=== PATIENT | female | born 1975 | race Caucasian/White ===

== ENCOUNTER 2018-06-27 12:14 | Emergency (ER) | payer BC ==
--- NOTE | 2018-06-27 12:51 | RAD REPORT ---
EXAM DESCRIPTION: CT - Ct Stroke Brain Wo Cont - 06/27/2018 12:45 pm CLINICAL HISTORY: facial drooping CVA COMPARISON: No comparisons TECHNIQUE: All CT scans are performed using dose optimization technique as appropriate and may inclu de automated exposure control or mA/KV adjustment according to patient size. FINDINGS: No intracranial hemorrhage, hydrocephalus or extra-axial fluid collection.No areas of brai n edema or evidence of midline shift. The paranasal sinuses and mastoids are clear. The calvarium is intact. IMPRESSION: No acute intracranial abnormality. The findings were discussed with ER physician Dr. Weinstein on 06/27/2018 at 12:40 p.m. by telephone.
--- NOTE | 2018-06-27 12:56 | RAD REPORT ---
EXAM DESCRIPTION: RAD - Chest Single View - 06/27/2018 12:48 pm CLINICAL HISTORY: CVA Chest pain. COMPARISON: No comparisons FINDINGS: Portable technique limits examination quality. The lungs are grossly clear. The heart is normal in size. No displaced fractures. IMPRESSION: No acute intrathoracic process suspected.
--- NOTE | 2018-06-27 13:14 | EDPHYS ---
Physician Documentation [facility] Name: Marleni Corbett Age: 43 yrs Sex: Female : 1975 Arrival Date: 06/27/2018 Time: 12:15 Bed 14 Private MD: ED Physician Dayron Sandhu HPI: 06/27 13:06 This 43 yrs old Female presents to ER via Ambulatory with complaints of ps1 Facial Droop. 13:06 The patient presents to the emergency department with weakness of the left side of the ps1 face, that is mild. Onset: The symptoms/episode began/occurred woke up this morning like this. hx of Ma's palsy as a teenager. Had some left ear pain. Now has left facial droop and ptosis. No other FND. C/w ma's palsy. . 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 - Social history:: Smoking status: Patient/guardian denies using tobacco, Patient/guardian denies using alcohol. - Ebola Screening: : Patient negative for fever greater than or equal to 101.5 degrees Fahrenheit, and additional compatible Ebola Virus Disease symptoms Patient denies exposure to infectious person Patient denies travel to an Ebola-affected area in the 21 days before illness onset. ROS: 13:06 Constitutional: Negative for fever, chills, and weight loss, Eyes: Negative for injury, ps1 pain, redness, and discharge, Cardiovascular: Negative for chest pain, palpitations, and edema, Respiratory: Negative for shortness of breath, cough, wheezing, and pleuritic chest pain, Abdomen/GI: Negative for abdominal pain, nausea, vomiting, diarrhea, and constipation, MS/Extremity: Negative for injury and deformity, Skin: Negative for injury, rash, and discoloration. 13:06 Neuro: Positive for weakness, of the left cheek. Exam: 13:06 Constitutional: This is a well developed, well nourished patient who is awake, alert, ps1 and in no acute distress. Head/Face: Normocephalic, atraumatic. 13:06 ENT: Nares patent. No nasal discharge, no septal abnormalities noted. Tympanic membranes are normal and external auditory canals are clear. Oropharynx with no redness, swelling, or masses, exudates, or evidence of obstruction, uvula midline. Mucous membranes moist. Chest/axilla: Normal chest wall appearance and motion. Nontender with no deformity. No lesions are appreciated. Cardiovascular: Regular rate and rhythm. No gallops, murmurs, or rubs. Normal PMI, no JVD. No pulse deficits. Respiratory: Lungs have equal breath sounds bilaterally, clear to auscultation and percussion. No rales, rhonchi or wheezes noted. No increased work of breathing, no retractions or nasal flaring. Abdomen/GI: Soft, non-tender, with normal bowel sounds. No distension or tympany. No guarding or rebound. No evidence of tenderness throughout. 13:06 Eyes: left ptosis. 13:06 Neuro: left facial nerve palsy. Vital Signs: 12:23 BP 136 / 85; Pulse 79; Resp 18; Temp 97.8(O); Pulse Ox 98% on R/A; Weight 122.47 kg; hj Height 5 ft. 2 in. (157.48 cm); Pain 0/10; 13:30 BP 133 / 73; Pulse 81; Resp 16; Pulse Ox 99% on R/A; aj 12:23 Body Mass Index 49.38 (122.47 kg, 157.48 cm) NIH Stroke Scale Scores: 12:41 NIHSS Score: 3 aj MDM: 12:53 Patient medically screened. ps1 13:06 Data reviewed: vital signs, nurses notes, radiologic studies, CT scan. Counseling: I ps1 had a detailed discussion with the patient and/or guardian regarding: the historical points, exam findings, and any diagnostic results supporting the discharge/admit diagnosis, radiology results, the need for outpatient follow up, for definitive care, an opthalmologist, an military aircraft designer. ED course: CT done per hospital protocol. No acute findings. Exam c/w Ma's. Home with steroids, acyclovir, erythromycin ointment, eye patch. Follow up with ophtho and IM. Stable. . 06/27 12:38 Order name: CT Stroke Brain w/o Contrast; Complete Time: 12:53 bd 06/27 12:45 Order name: Chest Single View; Complete Time: 13:06 EDMS Administered Medications: No medications were administered Point of Care Testing: Blood Glucose: 12:34 Blood Glucose: 108 mg/dL; ae1 Ranges: Critical Glucose Levels:Adult <50 mg/dl or >400 mg/dl <40 mg/dl or >180 mg/dl Disposition: 06/27/18 13:13 Discharged to Home. Impression: Ma's palsy. - Condition is Stable. - Discharge Instructions: Ma Palsy, Adult. - Prescriptions for Prednisone 20 mg Oral Tablet - take 3 tablets by ORAL route once daily for 7 days; 21 tablet. Acyclovir 800 mg Oral Tablet - take 1 tablet by ORAL route 4 times per day for 7 days; 28 tablet. Erythromycin 5 mg/gram (0.5 %) Ophthalmic Ointment - apply 1 ribbon by OPHTHALMIC route At bedtime; 1 tube. - Medication Reconciliation Form, Thank You Letter, Antibiotic Education, Prescription Opioid Use form. - Follow up: Private Physician; When: As needed; Reason: Continuance of care, Re-evaluation by your physician. Follow up: Nica Regan MD; When: 1 week; Reason: Continuance of care. - Problem is new. - Symptoms are unchanged. NIH Stroke Scale - NIH Stroke Score Date: 06/27/2018 Time: 12:41 Total Score = 3 1a. Level of Consciousness (LOC) - 0(Alert) 1b. Level of Consciousness (LOC) (Year \T\ Age) - 0(Both) 1c. LOC Commands (Open \T\ Closes Eyes/Flooring Sales Manager) - 0(Both) 2. Best Gaze (Lateral Gaze Paresis) - 0(Normal) 3. Visual Field Loss - 0(No visual loss) 4. Facial Palsy - 2(Partial paralysis) 5a. Left Arm: Motor (10-second hold) - 0(No drift) 5b. Right Arm: Motor (10-second hold) - 0(No drift) 6a. Left Leg: Motor (5-second hold - always test supine) - 0(No drift) 6b. Right Leg: Motor (5-second hold - always test supine) - 0(No drift) 7. Limb Ataxia (finger/nose \T\ heel/rapp - test with eyes open) - 0(Absent) 8. Sensory Loss (pinprick arms/legs/face) - 1(Mild to moderate loss) 9. Best Language: Aphasia (description/naming/reading) - 0(No aphasia) 10. Dysarthria (speech clarity - read or repeat words) - 0(Normal) 11. Extinction and Inattention (visual/tactile/auditory/spatial/personal) - 0(No abnormality) Initials: shonda Signatures: Dispatcher [employer] Paulina Hylton RN RN aj Joaquin, Henry, RN RN hj Singer, Phillip, MD MD ps1 Corrections: (The following items were deleted from the chart) 13:29 13:13 06/27/2018 13:13 Discharged to Home. Impression: Ma's palsy. Condition aj is Stable. Forms are Medication Reconciliation Form, Thank You Letter, Antibiotic Education, Prescription Opioid Use. Follow up: Private Physician; When: As needed; Reason: Continuance of care, Re-evaluation by your physician. Follow up: Nica Regan; When: 1 week; Reason: Continuance of care. Problem is new. Symptoms are unchanged. ps1
--- NOTE | 2018-06-27 13:14 | ER ---
Nurse's Notes [facility] Name: Marleni Corbett Age: 43 yrs Sex: Female : 1975 Arrival Date: 06/27/2018 Time: 12:15 Bed 14 Private MD: Diagnosis: Ma's palsy Presentation: 06/27 12:16 Presenting complaint: Patient states: at around 12 am today, i woke and drink water, i hj had issue with drinking it; this morning 7am, when i woke up from sleep with a L facial droop and my L eye started watering and pain on the back of my neck and L ear, like a shooting pain; but today, while i was playing a game on my phone, i was repeatedly calling some stars and repeated wondering why i was calling it; reports tingling on both arms and hands;. Transition of care: patient was not received from another setting of care. No acute neurological deficit is noted. Onset of symptoms was June 27, 2018. Risk Assessment: Do you want to hurt yourself or someone else? Patient reports no desire to harm self or others. Initial Sepsis Screen: Does the patient meet any 2 criteria? No. Patient's initial sepsis screen is negative. Does the patient have a suspected source of infection? No. Patient's initial sepsis screen is negative. Care prior to arrival: None. 12:16 Method Of Arrival: Ambulatory 12:16 Acuity: ISHMAEL 3 Triage Assessment: 12:22 The onset of the patients symptoms was June 27, 2018 at 00:00. General: Appears in no hj apparent distress. uncomfortable, Behavior is calm, cooperative, appropriate for age. Pain: Denies pain. Neuro: Reports facial droop. 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 - Social history:: Smoking status: Patient/guardian denies using tobacco, Patient/guardian denies using alcohol. - Ebola Screening: : Patient negative for fever greater than or equal to 101.5 degrees Fahrenheit, and additional compatible Ebola Virus Disease symptoms Patient denies exposure to infectious person Patient denies travel to an Ebola-affected area in the 21 days before illness onset. Screenin:22 Abuse screen: Denies threats or abuse. Denies injuries from another. Nutritional hj screening: No deficits noted. Tuberculosis screening: No symptoms or risk factors identified. Fall Risk None identified. Assessment: 12:41 T-PA (Activase) Screening: Indications: Treatment will start within 4.5 hours onset of aj symptoms: No. General: Appears in no apparent distress. comfortable, Behavior is calm, cooperative, appropriate for age. Neuro: Level of Consciousness is awake, alert, obeys commands, Oriented to person, place, time, situation, Appropriate for age. Neuro: [place] are equal bilaterally Moves all extremities. Full function Gait is steady, Speech is normal, Facial droop on left, Pupils are PERRLA, Numbness in left congregational, left zygomatic area and left cheek. Respiratory: Airway is patent Respiratory effort is even, unlabored, Respiratory pattern is regular, symmetrical. Derm: Skin is intact, is healthy with good turgor, Skin is pink, warm \T\ dry. normal. Vital Signs: 12:23 BP 136 / 85; Pulse 79; Resp 18; Temp 97.8(O); Pulse Ox 98% on R/A; Weight 122.47 kg; hj Height 5 ft. 2 in. (157.48 cm); Pain 0/10; 13:30 BP 133 / 73; Pulse 81; Resp 16; Pulse Ox 99% on R/A; aj 12:23 Body Mass Index 49.38 (122.47 kg, 157.48 cm) NIH Stroke Scale Scores: 12:41 NIHSS Score: 3 aj ED Course: 12:15 Patient arrived in ED. rg4 12:21 Triage completed. hj 12:23 Arm band placed on left wrist. 12:29 Patient has correct armband on for positive identification. Placed in gown. Bed in low hj position. Call light in reach. Side rails up X 1. Adult w/ patient. 12:33 CT completed. Patient tolerated procedure well. Patient moved to CT via wheelchair. sj Patient moved to CT Patient moved back from CT. 12:35 Inserted saline lock: 18 gauge in right antecubital area, using aseptic technique. aj Blood collected. 12:41 Paulina Prescott, TONEY is Primary Nurse. aj 12:45 CT Stroke Brain w/o Contrast In Process Unspecified. EDMS 12:47 EKG done, by area intelligence technician. reviewed by Evangelist Weinstein MD. at1 12:48 Chest Single View In Process Unspecified. EDMS 12:49 Dayron Sandhu MD is Attending Physician. ps1 12:50 X-ray completed. Portable x-ray completed in exam room. Patient tolerated procedure mh1 well. 13:13 Nica Regan MD is Referral Physician. ps1 13:28 No provider procedures requiring assistance completed. IV discontinued, intact, aj bleeding controlled, No redness/swelling at site. Pressure dressing applied. Administered Medications: No medications were administered Point of Care Testing: Blood Glucose: 12:34 Blood Glucose: 108 mg/dL; ae1 Ranges: Outcome: 13:13 Discharge ordered by MD. ps1 13:28 Discharged to home ambulatory, with family. aj 13:28 Condition: good 13:28 Discharge instructions given to patient, Instructed on discharge instructions, follow up and referral plans. medication usage, Demonstrated understanding of instructions, follow-up care, medications, Prescriptions given X 3. 13:29 Patient left the ED. aj NIH Stroke Scale - NIH Stroke Score Date: 06/27/2018 Time: 12:41 Total Score = 3 1a. Level of Consciousness (LOC) - 0(Alert) 1b. Level of Consciousness (LOC) (Year \T\ Age) - 0(Both) 1c. LOC Commands (Open \T\ Closes Eyes/Crimper Assembler) - 0(Both) 2. Best Gaze (Lateral Gaze Paresis) - 0(Normal) 3. Visual Field Loss - 0(No visual loss) 4. Facial Palsy - 2(Partial paralysis) 5a. Left Arm: Motor (10-second hold) - 0(No drift) 5b. Right Arm: Motor (10-second hold) - 0(No drift) 6a. Left Leg: Motor (5-second hold - always test supine) - 0(No drift) 6b. Right Leg: Motor (5-second hold - always test supine) - 0(No drift) 7. Limb Ataxia (finger/nose \T\ heel/rapp - test with eyes open) - 0(Absent) 8. Sensory Loss (pinprick arms/legs/face) - 1(Mild to moderate loss) 9. Best Language: Aphasia (description/naming/reading) - 0(No aphasia) 10. Dysarthria (speech clarity - read or repeat words) - 0(Normal) 11. Extinction and Inattention (visual/tactile/auditory/spatial/personal) - 0(No abnormality) Initials: shonda Signatures: Dispatcher [employer] EDPaulina Gao, RN RN Ayde Delgado mh1 Yajaira Meadows Amanda, sales and marketing administrator EKG Tat1 Misael Terry RN RN hj Elliott, Andrea, RN RN ae1 Magdalena Frankel rg4 Dayron Sandhu MD MD ps1 Corrections: (The following items were deleted from the chart) 12:25 12:16 Presenting complaint: Patient states: at around 12 am today, i woke and hj drink water, i had issue with drinking it; this morning 7am, when i woke up from sleep, my R eye started watering and pain on the back of my neck and L ear, like a shooting pain; but today, while i was playing a game on my phone, i was repeatedly calling some stars and repeated wondering why i was calling it; reports tingling on both arms and hands; 12:25 12:23 Pulse 79bpm; Resp 18bpm; Pulse Ox 98% RA; Temp 97.8F Oral; 122.47 kg; hj Height 5 ft. 2 in.; BMI: 49.3; Pain 0/10; hj
--- NOTE | 2018-06-27 19:10 | EKG ---
Test Date: 2018-06-27 Test Time: 12:43:42 Chief Digital Officer: BOB MEASUREMENT RESULTS: Intervals: Rate: 72 IA: 138 QRSD: 80 QT: 384 QTc: 420 [place]: P: 42 IA: 138 QRS: -10 T: 5 INTERPRETIVE STATEMENTS: Normal sinus rhythm Moderate voltage criteria for LVH, may be normal variant Borderline ECG No previous ECG available for comparison Electronically Signed On 06-27-18 19:08:39 CDT by Henri Sun
== END 2018-06-27 13:29 | disposition home or self-care (01) ==
LOC: ER 12:14
DX: G51.0 Bell's palsy (principal)
CPT/HCPCS: 70450; 71045; 82962; 93005; 99284